=== PATIENT | male | born 1990 | race Asian ===

== ENCOUNTER 2017-09-24 19:12 | Emergency (ER) | payer OTHER ==
[~2017-09-24] VITALS: Ht 167.6 cm; Wt 77.3 kg
[2017-09-24 20:00] LABS: BASOPHILS % 0.7 % (0.0-2.0); EOSINOPHILS % 3.3 % (0.0-5.0); HEMATOCRIT. 45.8 % (42.0-52.0); HEMOGLOBIN. 15.6 g/dL (14.0-18.0); LYMPHOCYTES % 32.1 % (20.0-50.0); MEAN CORPUSCULAR HEMOGLOBIN 31.3 pg (28.0-32.0); MEAN CORPUSCULAR VOLUME 91.8 fL (80.0-94.0); MEAN PLATELET VOLUME 8.8 fl (7.4-10.4); MONOCYTES % 9.4 % (2.0-8.0); NEUTROPHILS % 54.5 % (40.0-76.0); PLATELET 232 x1000/uL (130-400); RED BLOOD CELL COUNT 4.99 mill/uL (4.7-6.1)
[2017-09-24 20:05] LABS: CHLORIDE 105 mEq/L (98-107); PROTHROMBIN TIME 10.1 sec (9.4-11.6)
[2017-09-24 20:14] LABS: CARBON DIOXIDE 28 mEq/L (21-32)
[2017-09-24 20:36] LABS: HEPATITIS B SURFACE ANTIGEN NEGATIVE
[2017-09-24 21:04] LABS: HEPATITIS B CORE AB IGM NEGATIVE
[2017-09-24 21:05] LABS: HEPATITIS A AB IGM NEGATIVE (NEGATIVE)
[2017-09-24 21:07] LABS: CLARITY URINE CLEAR (CLEAR); COLOR URINE YELLOW (YELLOW); GLUCOSE URINE NEGATIVE (NEGATIVE); KETONES URINE NEGATIVE (NEGATIVE); LEUKOCYTE ESTERASE URINE NEGATIVE (NEGATIVE); NITRITE URINE NEGATIVE (NEGATIVE); OCCULT BLOOD URINE NEGATIVE (NEGATIVE); PROTEIN URINE NEGATIVE (NEGATIVE); SPECIFIC GRAVITY URINE 1.017 (1.005-1.030); UROBILINOGEN URINE 0.2 E.U./dL (0.2-1.0)
[2017-09-24 21:08] VITALS: BP 128/81
[2017-09-24 21:18] LABS: *AMPHETAMINES SCREEN URINE NEGATIVE (NEGATIVE); *BARBITURATES SCREEN URINE NEGATIVE (NEGATIVE); *BENZODIAZEPINES SCREEN URINE NEGATIVE (NEGATIVE); *COCAINE SCREEN URINE NEGATIVE (NEGATIVE); CANNABINOID URINE SCREEN NEGATIVE (NEGATIVE); METHADONE URINE SCREEN NEGATIVE (NEGATIVE); OPIATES URINE SCREEN NEGATIVE (NEGATIVE); PHENCYCLIDINE URINE SCREEN NEGATIVE (NEGATIVE)
== END 2017-09-24 23:01 | disposition home or self-care (01) ==
LOC: ER 19:31
DX: S61.032A Puncture wound without foreign body of left thumb without damage to nail, initial encounter (principal); W46.0XXA Contact with hypodermic needle, initial encounter; Y99.0 Civilian activity done for income or pay; Y93.89 Activity, other specified; Z77.21 Contact with and (suspected) exposure to potentially hazardous body fluids; Y92.69 Other specified industrial and construction area as the place of occurrence of the external cause
CPT/HCPCS: 36415; 71010; 80053; 80305; 81003; 83036; 85025; 85610; 86705; 86709; 86803; 87186; 87340; 93005; 99285